=== PATIENT | female | born 1940 | race Caucasian/White ===

== ENCOUNTER 2018-08-22 11:47 | Emergency (ER) | payer MEDICARE, OTHER ==
[~2018-08-22] VITALS: Ht 162.6 cm; Wt 113.4 kg
[2018-08-22] MEDS ORDERED: ONDANSETRON PF 4 MG/2 ML VIAL. IV ONE (12:15)
[2018-08-22] MEDS ORDERED: DICYCLOMINE HCL 10 MG CAPSULE PO ONE (12:15)
[2018-08-22] MEDS ORDERED: IV NORMAL SALINE 1000ML BAG 1,000 ML IV ONE (12:15)
[2018-08-22] MEDS ORDERED: FAMOTIDINE 20 MG/2 ML VIAL IVP ONE (12:15)
--- NOTE | 2018-08-22 12:37 | RAD ---
EXAM: CHEST 1 VIEW History: Fall, weakness COMPARISON: None available. TECHNIQUE: Single portable radiograph of the chest FINDINGS: Mild cardiomegaly. Calcific densities project in the left upper lobe of the lung probably calcified pleural plaques. The costophrenic sulci are clear and well demarcated. IMPRESSION: No acute cardiopulmonary findings. Electronically signed by: Terry John MD (08/22/2018 12:34 PM) [id number]
--- NOTE | 2018-08-22 12:45 | PHYS DOC ---
Past Medical History Past Medical History: Diabetes-Type II, Hypertension, Hypothyroid Past Surgical History: Angioplasty, Other Additional Past Surgical Histo: CARDIAC STENTS Alcohol Use: None Drug Use: None Adult General Chief Complaint Chief Complaint: DIARRHEA HPI HPI Patient is a 77 year old female with history of hypertension, diabetes type 2, who presents to the ED today complaining of diarrhea for 5 days. Patient denies any nausea, denies any. Denies any abdominal pain. She states she has been increasingly weak that she has fallen down twice in the last 5 days. Review of Systems Review of Systems Constitutional: Reports generalized weakness. Denies fever or chills [] Eyes: Denies change in visual acuity, redness, or eye pain [] HENT: Denies nasal congestion or sore throat [] Respiratory: Denies cough or shortness of breath [] Cardiovascular: No additional information not addressed in HPI [] GI: Reports diarrhea. Denies abdominal pain, nausea, vomiting, bloody stools : Denies dysuria or hematuria [] Musculoskeletal: Denies back pain or joint pain [] Integument: Denies rash or skin lesions [] Neurologic: Denies headache, focal weakness or sensory changes [] All other systems were reviewed and found to be within normal limits, except as documented in this note. Current Medications Current Medications Current Medications Medications (Trade) Dose Ordered Sig/Nguyễn Start Time Stop Time Status Last Admin Dose Admin Dicyclomine HCl (Bentyl) 20 mg 1X ONCE 08/22/18 12:15 08/22/18 12:16 DC 08/22/18 12:40 20 MG Famotidine (Pepcid Vial) 20 mg 1X ONCE 08/22/18 12:15 08/22/18 12:16 DC 08/22/18 12:40 20 MG Info (CONTRAST GIVEN -- Rx MONITORING) 1 each PRN DAILY PRN 08/22/18 13:30 08/24/18 13:29 Iohexol (Omnipaque 300 Mg/ml) 60 ml 1X ONCE 08/22/18 13:30 08/22/18 13:31 DC 08/22/18 13:52 60 ML Ondansetron HCl (Zofran) 4 mg 1X ONCE 08/22/18 12:15 08/22/18 12:16 DC 08/22/18 12:40 4 MG Sodium Chloride 1,000 ml @ 1,000 mls/hr 1X ONCE 08/22/18 12:15 08/22/18 13:14 DC 08/22/18 12:40 1,000 MLS/HR Allergies Allergies Allergies Coded Allergies Type Severity Reaction Last Updated Verified No Known Drug Allergies 08/22/18 No Physical Exam Physical Exam Constitutional: Well developed, well nourished, no acute distress, non-toxic appearance. [] HENT: Normocephalic, atraumatic, bilateral external ears normal, oropharynx moist, no oral exudates, nose normal. [] Eyes: PERRLA, EOMI, conjunctiva normal, no discharge. [] Neck: Normal range of motion, no tenderness, supple, no stridor. [] Cardiovascular:Heart rate regular rhythm, no murmur [] Lungs & Thorax: Bilateral breath sounds clear to auscultation [] Abdomen: Bowel sounds normal, soft, no tenderness, no masses, no pulsatile masses. [] Skin: Warm, dry, no erythema, no rash. [] Back: No tenderness, no CVA tenderness. [] Extremities: No tenderness, no cyanosis, no clubbing, ROM intact, no edema. [] Neurologic: Alert and oriented X 3, normal motor function, normal sensory function, no focal deficits noted. Cranial nerves II through XII intact Psychologic: Appears sad Current Patient Data Vital Signs Vital Signs Date Time Temp Pulse Resp B/P (MAP) Pulse Ox O2 Delivery O2 Flow Rate FiO2 08/22/18 13:25 62 15 120/58 (78) 93 Room Air 08/22/18 11:55 98.4 98.4 Lab Values Laboratory Tests Test 08/22/18 11:59 08/22/18 12:50 08/22/18 14:00 Glucose (Fingerstick) 136 mg/dL (70-99) H Prothrombin Time 14.6 SEC (11.7-14.0) H Prothrombin Time INR 1.2 (0.8-1.1) H Sodium Level 144 mmol/L (136-145) Potassium Level 3.6 mmol/L (3.5-5.1) Chloride Level 106 mmol/L (98-107) Carbon Dioxide Level 24 mmol/L (21-32) Anion Gap 14 (6-14) Blood Urea Nitrogen 29 mg/dL (7-20) H Creatinine 1.2 mg/dL (0.6-1.0) H Estimated GFR (Cockcroft-Gault) 43.7 BUN/Creatinine Ratio 24 (6-20) H Glucose Level 135 mg/dL (70-99) H Calcium Level 9.3 mg/dL (8.5-10.1) Magnesium Level 1.8 mg/dL (1.8-2.4) Total Bilirubin 1.0 mg/dL (0.2-1.0) Aspartate Amino Transferase (AST) 31 U/L (15-37) Alanine Aminotransferase (ALT) 36 U/L (14-59) Alkaline Phosphatase 82 U/L (46-116) Creatine Kinase 283 U/L (26-192) H Creatine Kinase MB (Mass) 2.2 ng/mL (0.0-3.6) Creatine Kinase MB Relative Index 0.8 % (0-4) Troponin I Quantitative < 0.017 ng/mL (0.000-0.055) QM-Bub-Z-Type Natriuretic Peptide 842 pg/mL (0-449) H Total Protein 6.3 g/dL (6.4-8.2) L Albumin 3.1 g/dL (3.4-5.0) L Albumin/Globulin Ratio 1.0 (1.0-1.7) Lipase 42 U/L (73-393) L Thyroid Stimulating Hormone (TSH) 0.340 uIU/mL (0.358-3.74) L White Blood Count 4.8 x10^3/uL (4.0-11.0) Red Blood Count 3.58 x10^6/uL (3.50-5.40) Hemoglobin 10.5 g/dL (12.0-15.5) L Hematocrit 31.7 % (36.0-47.0) L Mean Corpuscular Volume 89 fL (79-100) Mean Corpuscular Hemoglobin 30 pg (25-35) Mean Corpuscular Hemoglobin Concent 33 g/dL (31-37) Red Cell Distribution Width 15.6 % (11.5-14.5) H Platelet Count 45 x10^3/uL (140-400) L Neutrophils (%) (Auto) 72 % (31-73) Lymphocytes (%) (Auto) 16 % (24-48) L Monocytes (%) (Auto) 11 % (0-9) H Eosinophils (%) (Auto) 1 % (0-3) Basophils (%) (Auto) 1 % (0-3) Neutrophils # (Auto) 3.4 x10^3/uL (1.8-7.7) Lymphocytes # (Auto) 0.8 x10^3/uL (1.0-4.8) L Monocytes # (Auto) 0.5 x10^3/uL (0.0-1.1) Eosinophils # (Auto) 0.1 x10^3/uL (0.0-0.7) Basophils # (Auto) 0.0 x10^3/uL (0.0-0.2) Platelet Estimate Decreased (ADEQUATE) Large Platelets Few Giant Platelets Occ Urine Collection Type Unknown Urine Color Karissa Urine Clarity Cloudy Urine pH 6.0 Urine Specific Herrick >=1.030 Urine Protein 30 mg/dL (NEG-TRACE) Urine Glucose (UA) Negative mg/dL (NEG) Urine Ketones (Stick) 15 mg/dL (NEG) Urine Blood Trace (NEG) Urine Nitrite Positive (NEG) Urine Bilirubin Small (NEG) Urine Urobilinogen Dipstick 0.2 mg/dL (0.2 mg/dL) Urine Leukocyte Esterase Moderate (NEG) Urine RBC 0 /HPF (0-2) Urine WBC Tntc /HPF (0-4) Urine Squamous Epithelial Cells Many /LPF Urine Bacteria Many /HPF (0-FEW) Urine Opiates Screen Neg (NEG) Urine Methadone Screen Neg (NEG) Urine Barbiturates Neg (NEG) Urine Phencyclidine Screen Neg (NEG) Urine Amphetamine/Methamphetamine Neg (NEG) Urine Benzodiazepines Screen Neg (NEG) Urine Cocaine Screen Neg (NEG) Urine Cannabinoids Screen Neg (NEG) Urine Ethyl Alcohol Neg (NEG) Laboratory Tests 08/22/18 14:00 Laboratory Tests 08/22/18 12:50 EKG EKG [address] Rojas sinus rhythm HR 64 no STEMI[] Radiology/Procedures Radiology/Procedures [] Course & Med Decision Making Course & Med Decision Making Pertinent Labs and Imaging studies reviewed. (See chart for details) This is a 77-year-old female patient presenting to the ED today complaining of diarrhea that began 5 days ago as well as generalized weakness. She states she has fallen down twice in the last 5 days due to weakness. CBC with normal WBC, hemoglobin 10.5, hematocrit 31.7, patient does not know her baseline hemoglobin and hematocrit. She states she does not have any rectal bleeding. CMP-no acute findings. Chest x-ray, CT of the head, CT of the abdomen and pelvic is negative for acute findings. Noted for cholelithiasis, no cholecystitis. Urine analysis is noted for UTI-discharged on cephalexin Patient was given a liter of fluid. I went back to reassess, patient is in the ED with HER-2 sons. She states she has been through a lot of stress in the last couple days, she states her 40-year-old nephew got dropped off at her house with a dog that got in a fight with her own dog, she states the nephew has no cigarettes and has some mental issues, she states she's been coming in and out of her house but she states they had to take care of the situation and she was removed from the house. She wants to go home. She states she has 2 good sons and a good doctor she can follow-up. Requested patient to contact the primary care doctor tomorrow and let her her hemoglobin, informed patient if it's lower than her baseline she needs to have the primary care doctor investigate why it is low. Patient and the sons agreed to it. D/C on Lomitil for diarrhea. Gloria Disclaimer Gloria Disclaimer This electronic medical record was generated, in whole or in part, using a voice recognition dictation system. Departure Departure Impression: Primary Impression: Diarrhea Additional Impression: Urinary tract infection Disposition: 01 HOME, SELF-CARE Condition: STABLE Referrals: UNKNOWN PCP NAME (PCP) Call your doctor tomorrow Patient Instructions: Diarrhea, Urinary Tract Infection Additional Instructions: You were evaluated in the emergency room for diarrhea, your white count is normal,your hemoglobin is 10.5 with hematocrit 31.7. This lab findings are lower than normal. We would like you to contact your primary care doctor tomorrow and let him or her know this lab values so he can follow-up or she can follow-up. Please complete your antibiotics for urinary tract infection. Push fluids. Come back to the ED at any point symptoms worsen. Please take Lomotil for diarrhea Scripts Cephalexin (CEPHALEXIN) 500 Mg Tablet 1 TAB PO QID, #14 TAB Prov: MUTUNGA,KENNETH VISION REH[employer]ILITATION THERAPIST 08/22/18 Diphenoxylate Hcl/Atropine (LOMOTIL TABLET) 1 Each Tablet 1 TAB PO TID, #20 TAB Prov: KENNETH MORALES APRN 08/22/18 Problem Qualifiers Primary Impression: Diarrhea Diarrhea type: unspecified type Qualified Codes: R19.7 - Diarrhea, unspe cified Additional Impression: Urinary tract infection Urinary tract infection type: site unspecified Hematuria presence: without hematuria Qualified Codes: N39.0 - Urinary tract infection, site not specified KNENETH MORALES APRN Aug 22, 2018 12:45
[2018-08-22 13:10] LABS: CALCIUM 9.3 mg/dL (8.5-10.1); CREATININE 1.2 mg/dL (0.6-1.0); GFR 43.7; POTASSIUM 3.6 mmol/L (3.5-5.1)
[2018-08-22 13:16] LABS: ALBUMIN 3.1 g/dL (3.4-5.0); MAGNESIUM 1.8 mg/dL (1.8-2.4); TOTAL PROTEIN 6.3 g/dL (6.4-8.2)
[2018-08-22 13:24] LABS: PROTHROMBIN TIME PATIENT 14.6 SEC (11.7-14.0)
[2018-08-22] MEDS ORDERED: CONTRAST GIVEN. MC PRN (13:30)
[2018-08-22] MEDS ORDERED: IOHEXOL 300 MG/ML 100ML VIAL. IV ONE (13:30)
--- NOTE | 2018-08-22 14:04 | RAD ---
CT HEAD INDICATION: Fall COMPARISON: None Available. Exposure: One or more of the following individualized dose reduction techniques were utilized for this examination: 1. Automated exposure control 2. Adjustment of the mA and/or kV according to patient size 3. Use of iterative reconstruction technique TECHNIQUE: 5 mm contiguous axial images were obtained from the skull base to the vertex in both bone and soft tissue algorithm. FINDINGS: Mild bilateral periventricular white matter hypodensities likely chronic small vessel ischemic disease. No evidence of acute intracranial hemorrhage. No extra-axial fluid collections. No mass effect or midline shift. Ventricular size is appropriate. Basal cisterns are patent. No fractures identified.Patel-white differentiation is preserved.Globes and orbits are within normal limits. Paranasal sinuses and mastoid air cells are clear. IMPRESSION: No acute intracranial findings. Electronically signed by: Terry John MD (08/22/2018 2:01 PM) [id number]
--- NOTE | 2018-08-22 14:05 | RAD ---
PQRS Compliance statement: One or more of the following individualized dose reduction techniques were utilized for this examination: 1. Automated exposure control. 2. Adjustment of the mA and/or kV according to patient size. 3. Use of iterative reconstruction technique. Indication:Diarrhea for 4 days. TECHNIQUE: CT abdomen and pelvis with IV contrast with multiplanar reformats. COMPARISON: None FINDINGS: Heart is normal in size. No pericardial or pleural effusion. Clear lung bases. Liver, spleen, adrenals and kidneys are within normal limits. Gallstones noted. Gallbladder is distended. Diffuse fatty atrophy of the pancreas noted. No enlarged retroperitoneal or pelvic adenopathy. No free pelvic fluid or ascites. No bowel obstruction. Scattered colonic diverticulosis. Normal appendix. Uterus is present. Urinary bladder is within normal limits. No pneumoperitoneum. Mild diffuse atherosclerotic plaque in the abdominal aorta. No suspicious bony lesion. IMPRESSION: 1. Cholelithiasis without imaging evidence of acute cholecystitis. If concern for acute cholecystitis is high, please consider further evaluation with HIDA scan. 2. Scattered colonic diverticulosis without diverticulitis. Electronically signed by: Tigre Callahan DO (08/22/2018 2:02 PM) [facility]
[2018-08-22 14:08] LABS: BASO % 1 % (0-3); EOS # 0.1 x10^3/uL (0.0-0.7); EOS % 1 % (0-3); HEMATOCRIT 31.7 % (36.0-47.0); HEMOGLOBIN 10.5 g/dL (12.0-15.5); LYMPH # 0.8 x10^3/uL (1.0-4.8); LYMPH % 16 % (24-48); MEAN CORPUSCULAR HEMOGLOBIN 30 pg (25-35); MEAN CORPUSCULAR HGB CONC 33 g/dL (31-37); MEAN CORPUSCULAR VOLUME 89 fL (79-100); MONO # 0.5 x10^3/uL (0.0-1.1); MONO % 11 % (0-9); NEUT # 3.4 x10^3/uL (1.8-7.7); NEUT % 72 % (31-73); PLATELET COUNT 45 x10^3/uL (140-400); RED BLOOD COUNT 3.58 x10^6/uL (3.50-5.40); RED CELL DISTRIBUTION WIDTH 15.6 % (11.5-14.5); WHITE BLOOD COUNT 4.8 x10^3/uL (4.0-11.0)
[2018-08-22 14:17] LABS: BILIRUBIN,URINE SMALL (NEG); CLARITY,URINE CLOUDY; COLOR,URINE AMBER; NITRITE,URINE POSITIVE (NEG); PROTEIN,URINE 30 mg/dL (NEG-TRACE); UROBILINOGEN,URINE 0.2 mg/dL (0.2 mg/dL)
[2018-08-22 14:23] LABS: BARBITURATES NEG (NEG); BENZODIAZEPINES NEG (NEG); CANNABINOIDS NEG (NEG); COCAINE NEG (NEG); METHADONE NEG (NEG); OPIATES NEG (NEG); PHENCYCLIDINE NEG (NEG)
[2018-08-22 14:24] LABS: AMPHETAMINE/METHAMPHETAMINE NEG (NEG)
[2018-08-22 14:27] LABS: BACTERIA,URINE MANY /HPF (0-FEW); RBC,URINE 0 /HPF (0-2); SQUAMOUS EPITHELIAL CELL,UR MANY /LPF; WBC,URINE TNTC /HPF (0-4)
--- NOTE | 2018-08-22 14:28 | EKG ---
[facility] [address] [place] [address] Test Date: 2018-08-22 Test Time: 12:34:38 Pat Name: LILLY RANDALL Department: Room: Gender: F Pulp D[employer] Firer: : 1940 Requested By: KENNETH MORALES Order Number: [id number] Reading MD: Measurements Intervals Reese Rate: 63 P: 40 KS: 214 QRS: -30 QRSD: 102 T: 28 QT: 450 QTc: 463 Interpretive Statements SINUS RHYTHM ABNORMAL LEFT AXIS DEVIATION LEFT ANTERIOR FASCICULAR BLOCK LVH WITH REPOLARIZATION ABNORMALITY QRS(T) CONTOUR ABNORMALITY CONSIDER ANTEROSEPTAL MYOCARDIAL DAMAGE ABNORMAL ECG No previous ECG available for comparison
[2018-08-22 14:35] LABS: PLT ESTIMATE DECREASED (ADEQUATE)
[2018-08-22] MEDS ORDERED: DIPH1TAB PO (15:54)
[2018-08-22] MEDS ORDERED: CEPH500T PO (15:54)
[2018-08-22 16:37] VITALS: BP 136/6
== END 2018-08-22 16:49 | disposition home or self-care (01) ==
LOC: ER 11:47
DX: N39.0 Urinary tract infection, site not specified (principal); R19.7 Diarrhea, unspecified; E11.9 Type 2 diabetes mellitus without complications; I10 Essential (primary) hypertension; E03.9 Hypothyroidism, unspecified; Z95.5 Presence of coronary angioplasty implant and graft
CPT/HCPCS: 36415; 70450; 71045; 74177; 80053; 80307; 81001; 82553; 82962; 83690; 83735; 83880; 84443; 84484; 85025; 85610; 93005; 96361; 96374; 96375; 99285; J2405; J3490; J7030; Q9967

== ENCOUNTER 2018-10-31 08:35 | Outpatient (CLI) | payer MEDICARE, OTHER ==
[~2018-10-31] VITALS: Ht 165.1 cm; Wt 113.4 kg
[2018-10-31] VITALS (9 sets, daily range): BP systolic 114–184; BP diastolic 46–87
[~2018-10-31 08:35] MED LIST: CEPH500T PO; DIPH1TAB PO
[2018-10-31] MEDS ORDERED: LEVO150T PO (08:56)
[2018-10-31] MEDS ORDERED: METF850T8 PO (08:56)
[2018-10-31] MEDS ORDERED: GLIP10TA13 PO (08:56)
[2018-10-31] MEDS ORDERED: SITA100T PO (08:56)
[2018-10-31] MEDS ORDERED: FOSI40TA4 PO (08:56)
[2018-10-31] MEDS ORDERED: PREG100C PO (08:56)
[2018-10-31] MEDS ORDERED: AMLO10TA8 PO (08:56)
[2018-10-31] MEDS ORDERED: ATOR40TA59 PO (08:56)
[2018-10-31] MEDS ORDERED: MIDAZOLAM HCL/PF 2 MG/2 ML VIAL. ONE (09:02)
[2018-10-31] MEDS ORDERED: fentaNYL PF VIAL 100 MCG/2 ML VIAL ONE (09:02)
[2018-10-31 09:25] LABS: PROTHROMBIN TIME PATIENT 12.6 SEC (11.7-14.0)
[2018-10-31] MEDS ORDERED: LIDOCAINE WITH 8.4% SOD BICARB 3 ML DISP.SYRIN. ONE (09:29)
[2018-10-31 09:39] LABS: BASO # 0.1 x10^3/uL (0.0-0.2); BASO % 1 % (0-3); EOS # 0.4 x10^3/uL (0.0-0.7); EOS % 6 % (0-3); HEMATOCRIT 34.3 % (36.0-47.0); HEMOGLOBIN 11.6 g/dL (12.0-15.5); LYMPH % 15 % (24-48); MEAN CORPUSCULAR HEMOGLOBIN 30 pg (25-35); MEAN CORPUSCULAR HGB CONC 34 g/dL (31-37); MEAN CORPUSCULAR VOLUME 89 fL (79-100); MONO # 0.2 x10^3/uL (0.0-1.1); MONO % 4 % (0-9); NEUT % 74 % (31-73); PLATELET COUNT 41 x10^3/uL (140-400); RED BLOOD COUNT 3.88 x10^6/uL (3.50-5.40); RED CELL DISTRIBUTION WIDTH 16.8 % (11.5-14.5); WHITE BLOOD COUNT 6.8 x10^3/uL (4.0-11.0)
[2018-10-31] MEDS ORDERED: MIDAZOLAM HCL/PF 2 MG/2 ML VIAL. IV ONE (09:45)
[2018-10-31] MEDS ORDERED: LIDOCAINE WITH 8.4% SOD BICARB 3 ML DISP.SYRIN. IJ ONE (09:45)
[2018-10-31] MEDS ORDERED: fentaNYL PF VIAL 100 MCG/2 ML VIAL IV ONE (09:45)
--- NOTE | 2018-10-31 11:41 | NUR ---
Discharge Note: LILLY RANDALL Discharge instructions and discharge home medications reviewed with Patient and a copy given. All questions have been answered and understanding verbalized. The following instructions and handouts were given: post bone marrow aspiration and adult moderate sedation Discontinued lines and drains: Peripheral IV intact. Patient discharged to Home or Self Care withFamily Membera Wheelchair
[2018-10-31 13:02] LABS: PLT ESTIMATE DECREASED (ADEQUATE)
[2018-10-31 13:03] LABS: ANISOCYTOSIS PRESENT
--- NOTE | 2018-10-31 16:16 | RAD ---
CT-guided bone marrow biopsy. 10/31/2018 2:12 PM Indication: Thrombocytopenia Discussion: The risks and benefits of the procedure, including but not limited to, bleeding and infection were discussed patient. Informed consent was obtained. The patient was brought to the CT scanner and placed in the prone position. A timeout procedure was performed. 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 The overlying soft tissues were prepped and draped using maximum sterile barrier technique. 1% lidocaine without epinephrine was administered for local anesthesia. Under intermittent CT guidance, an OncControl needle was advanced into the bone marrow of the left iliac crest. 2 Aspirates and 1 core biopsy samples were obtained. Samples were delivered to pathology was present at the time of procedure. The needle was removed and manual pressure held to achieve hemostasis. No immediate complications were identified. The procedure was performed under conscious sedation including continuous cardiopulmonary monitoring via dedicated sedation nurse. Sedation time: 20 minutes Impression: Successful CT-guided bone marrow biopsy of the left iliac crest . PQRS Compliance Statement: One or more of the following individualized dose reduction techniques were utilized for this examination: 1. Automated exposure control 2. Adjustment of the mA and/or kV according to patient size 3. Use of iterative reconstruction technique
== END 2018-10-31 11:45 | disposition home or self-care (01) ==
LOC: INTRAD 08:35
PROVIDERS: ATTEND Internal Medicine Hematology & Oncology
DX: D69.6 Thrombocytopenia, unspecified (principal)
CPT/HCPCS: 36415; 38222; 77012; 85025; 85610; 88184; 88185; 88237; 99152; J2250; J3010

== ENCOUNTER → 2018-11-03 | Outpatient (CLI) | payer MEDICARE, OTHER ==
[2018-10-31 11:25] VITALS: BP 123/57
[~2018-11-03] MED LIST changes: +AMLO10TA8 PO; +ATOR40TA59 PO; +FOSI40TA4 PO; +GLIP10TA13 PO; +LEVO150T PO; +METF850T8 PO; +PREG100C PO; +SITA100T PO
--- NOTE | 2018-11-03 09:32 | RAD ---
EXAM: Abdomen sonogram. HISTORY: Anemia. Thrombocytopenia. TECHNIQUE: Sonographic imaging of the abdomen was performed. COMPARISON: CT dated 08/22/2018. FINDINGS: The liver is mildly enlarged. There is mild hepatic steatosis. No focal hepatic lesion is seen. The common bile duct is normal in caliber for patient age. There is layering sludge and small stones within the gallbladder. The gallbladder wall is upper normal in thickness. The kidneys normal in size. There is bilateral renal cortical lobulation. There is no hydronephrosis. The pancreas is obscured due to bowel gas. The spleen is mildly enlarged, measuring 13.7 cm. The aorta is normal in caliber. The inferior vena cava is patent. IMPRESSION: 1. Mild hepatomegaly with suspected hepatic steatosis. 2. Gallbladder sludge and cholelithiasis. 3. Mild splenomegaly. 4. Bilateral renal cortical loculation, likely due to scarring. Electronically signed by: Natalia Jordan MD (11/03/2018 9:29 AM) [id number]
== END | disposition home or self-care (01) ==
LOC: US 07:39
PROVIDERS: ATTEND Internal Medicine Hematology & Oncology
DX: K80.70 Calculus of gallbladder and bile duct without cholecystitis without obstruction (principal); R16.2 Hepatomegaly with splenomegaly, not elsewhere classified; D70.9 Neutropenia, unspecified; D69.6 Thrombocytopenia, unspecified
CPT/HCPCS: 76700